=== PATIENT | male | born 1980 | race Caucasian/White ===

== ENCOUNTER 2023-08-16 11:26 | Inpatient (IN) | payer BC, SELFPAY ==
[2023-08-16 14:03] VITALS: BMI 41.3
[2023-08-16] MEDS ORDERED: Ondansetron PF 4 MG/2 ML Vial IVP PRN (17:51)
[2023-08-16] MEDS ORDERED: Ondansetron ODT 4 MG TAB PO PRN (17:51)
[2023-08-16] MEDS: Sodium Chloride 0.9% 1,000 ML IV SCH (18:29)
[2023-08-16] MEDS: Famotidine 20 MG TAB PO SCH (21:27)
[2023-08-17 01:22] VITALS: TEMP 97.6
[2023-08-17 06:44] LABS: #Basophils 0.09 10x3/uL (0.0-0.2); %Basophils 0.8 % (0.0-1.0); %Eosinophils 4.6 % (0.0-10.0); %Lymphocytes 21.1 % (21.0-51.0); %Monocytes 8.2 % (0.0-10.0); Hematocrit 45.6 % (42.0-52.0); Hemoglobin 14.8 g/dL (14.0-18.0); Mean Corpuscular HGB CONC 32.5 g/dL (32.0-36.0); Mean Corpuscular Hemoglobin 27.3 pg (27.0-31.0); Mean Corpuscular Volume 84.1 fL (78.0-98.0); Platelet Count 330 10x3/uL (130-400); RBC Distribution Width 13.7 % (11.5-14.5); Red Blood Cell (RBC) Count 5.42 mill/uL (4.70-6.10)
[2023-08-17 06:59] LABS: ALT (SGPT) 35 U/L (8-55); AST (SGOT) 16 U/L (5-34); Albumin 3.4 g/dL (3.5-5.0); Alkaline Phosphatase 63 U/L (40-110); Anion Gap 13 mmol/L (10-20); BUN (Urea Nitrogen) 13 mg/dL (8.9-20.6); Bilirubin, Total 0.8 mg/dL (0.2-1.2); Calc. Creatinine Clearance 218 mL/min (70-130); Calcium 8.9 mg/dL (7.8-10.44); Carbon Dioxide 22 mmol/L (22-29); Chloride 111 mmol/L (98-107); Estimated GFR 112; Glucose 90 mg/dL (70-105); Potassium 4.1 mmol/L (3.5-5.1); Protein, Total 6.4 g/dL (6.0-8.3); Sodium 142 mmol/L (136-145)
[2023-08-17 08:28] VITALS: BP 149/85
[2023-08-17] MEDS: Enoxaparin 40 MG (0.4 mL) SYRINGE SC SCH (08:30)
== END 2023-08-17 18:44 | disposition home or self-care (01) | DRG 392 ==
LOC: T4-B 11:26 → OBSVTOIN 17:51
PROVIDERS: ADMIT Surgery; ATTEND Surgery
DX: K52.9 Noninfective gastroenteritis and colitis, unspecified (principal); K56.7 Ileus, unspecified; K56.600 Partial intestinal obstruction, unspecified as to cause
CPT/HCPCS: 36415; 74018; 80053; 85025; J1650; J7050